=== PATIENT | male | born 1955 | race Caucasian/White ===

== ENCOUNTER 2017-07-25 17:39 | Inpatient (IN) | payer MEDICAID ==
[~2017-07-25] VITALS: Ht 165.1 cm; Wt 84.8 kg
[2017-07-25 18:25] VITALS: BP 124/83
--- NOTE | 2017-07-25 22:48 | NUR ---
PT TAKEN TO BED 10
--- NOTE | 2017-07-25 22:50 | NUR ---
61Y M BIB FAMILY C/O RIGHT INGUINAL BURNING PAIN, RECURRING PROTRUSION---- PT ADDS HERNIA IS REDUCIBLE BUT PROTRUDES WITH THE SLIGHTEST MOVEMENTS HX---INGUINAL HERNIA, RX---NONE
[2017-07-25 23:58] LABS: HEMATOCRIT 39.2 % (36-52); HEMOGLOBIN 13.2 g/dL (12.0-18.0); MEAN CORPUSCULAR HEMOGLOBIN 30 pg (27-31); MEAN CORPUSCULAR HGB CONC 34 g/dL (33-37); MEAN CORPUSCULAR VOLUME 89 fL (80-94); PLATELET COUNT (AUTO) 207 K/uL (140-450); RED BLOOD CELL COUNT(AUTO) 4.43 MIL/uL (4.20-6.10); RED CELL DISTRIBUTION WIDTH 12.5 % (11.6-13.7); WHITE BLOOD COUNT (AUTO) 6.4 K/uL (4.8-10.8)
[2017-07-26 00:08] LABS: ANION GAP 15.2 (8-16); CARBON DIOXIDE 24.4 mmol/L (21-32); CREATININE 0.8 mg/dL (0.7-1.3); POTASSIUM 3.6 mmol/L (3.5-5.1)
[2017-07-26 00:10] LABS: EOSINOPHILS % (MANUAL) 1 % (0-4); LYMPHOCYTES % (MANUAL) 56 % (20-46); MONOCYTES % (MANUAL) 2 % (5-12)
[2017-07-26 00:14] LABS: ALBUMIN 3.6 g/dL (3.4-5.0); TOTAL BILIRUBIN 0.3 mg/dL (0.0-1.0)
[2017-07-26 00:18] LABS: PROTHROMBIN TIME 10.2 secs (10.8-13.4)
[2017-07-26 00:22] LABS: APPEARANCE,URINE CLEAR (CLEAR); BILIRUBIN,URINE NEGATIVE (NEGATIVE); BLOOD, URINE NEGATIVE (NEGATIVE); COLOR,URINE YELLOW (YELLOW); LEUKOCYTE ESTERASE ,URINE NEGATIVE (NEGATIVE); NITRITE, URINE NEGATIVE (NEGATIVE); PH,URINE 5.5 (5.0-9.0); UGLUCOSE NEGATIVE (NEGATIVE)
[2017-07-26] MEDS: NACL 0.9% 1,000 ML IV SCH ×3 (01:06→21:21)
[2017-07-26] MEDS ORDERED: ACETAMINOPHEN 325 MG TAB PO PRN (01:10)
[2017-07-26] MEDS ORDERED: HYDROcodone/APAP 7.5/325 MG 1 TAB PO PRN (01:10)
[2017-07-26] MEDS ORDERED: DOCUSATE SODIUM 100 MG GELCAP PO PRN (01:10)
[2017-07-26] MEDS ORDERED: ZOLPIDEM 5 MG TAB PO PRN (01:10)
[2017-07-26] MEDS ORDERED: LORazepam 0.5 MG TAB PO PRN (01:10)
[2017-07-26] MEDS ORDERED: MORPHINE SULFATE 2 MG/ML SYR IVP PRN (01:10)
[2017-07-26] MEDS ORDERED: ONDANSETRON 4 MG/2 ML VIAL IM/IVP PRN (01:10)
[2017-07-26 01:30] VITALS: BP 127/82
--- NOTE | 2017-07-26 01:30 | NUR ---
RECEIVED PT FROM ER VIA ZAIN. AAOX4. IV TO RIGHT AC #18 G, SALINE LOCK. NO C/O PAIN AT THIS TIME. ORIENTED PT TO ROOM. V/S TAKEN. CALL LIGHT WITHIN REACH. WILL CONTINUE TO MONITOR.
--- NOTE | 2017-07-26 01:32 | NUR ---
Patient will be admitted to care of DR NICHOLSON. Admited to TELE 125. Will go to room 125. Belongings list completed. Report to ANTHONY.
[2017-07-26 01:35] LABS: BARBITURATE, URINE NEG. ng/ml (NEG <=200); BENZODIAZEPINE, URINE NEG. ng/mL (NEG <=200); CANNABINOID, URINE NEG. ng/mL (NEG <=50); COCAINE, URINE NEG. ng/mL (NEG <=300); OPIATE, URINE NEG. ng/mL (NEG <=2000); PHENCYCLIDINE SCREEN,URINE NEG. ng/mL (NEG <=25)
[2017-07-26 01:46] LABS: CHOL/HDL RATIO 6.6 (1-4.5); FREE T4 (FREE THYROXINE) 1.19 ng/dL (0.76-1.46); MAGNESIUM 1.7 mg/dL (1.8-2.4); PHOSPHORUS 3.5 mg/dL (2.5-4.9); THYROID STIMULATING HORMONE 4.78 uIU/mL (0.34-3.74)
--- NOTE | 2017-07-26 03:45 | NUR ---
PT RESTING IN BED WITH EYES CLOSED. RESPIRATIONS REGULAR, EVEN AND UNLABORED. AROUSES EASILY. NO /S OF PAIN. CALL LIGHT WITHIN REACH.
[2017-07-26 04:00] VITALS: BP 124/78
--- NOTE | 2017-07-26 05:50 | NUR ---
PT SLEEPING. NO S/S OF DISTRESS NOTED. CALL LIGHT WITHIN REACH.
--- NOTE | 2017-07-26 07:05 | NUR ---
ENDORSED PT TO DAY SHIFT NURSE. PT IN STABLE CONDITION.
--- NOTE | 2017-07-26 07:20 | NUR ---
REPORT RECEIVED FROM DIGITAL MARKETING APPRENTICE NURSE, PT SLEEPING QUIETLY IN NAD, AROUSED EASILY, RESP EVEN UNLABORED ON ROOM AIR, SKIN WARM DRY COLOR WNL, DENIES PAIN OR DISCOMFORT, PLAN OF CARE REVIEWED, NO IMMEDIATE NEEDS IDENTIFIED, CALL SOLO WITHIN REACH, SIDE RAILS UP, BED LOCKED IN LOW POSITION WILL CONTINUE TO MONITOR.
[2017-07-26 08:00] VITALS: BP 131/87
--- NOTE | 2017-07-26 08:20 | NUR ---
DR GAGE AND TEAM AT BEDSIDE FOR EVAL.
--- NOTE | 2017-07-26 08:33 | NUR ---
SURGERY CONSULT AT BEDSIDE.
--- NOTE | 2017-07-26 08:34 | NUR ---
TELE MONITOR REMOVED, PT NOW MED/SURG STATUS.
[2017-07-26 08:44] LABS: BASOPHILS # (AUTO) 0.1 K/uL (0.00-0.22); BASOPHILS % (AUTO) 2.3 % (0.0-2.0); EOSINOPHILS # (AUTO) 0.1 K/uL (0-0.4); EOSINOPHILS % (AUTO) 2.5 % (0.0-4.0); HEMATOCRIT 39.4 % (36-52); HEMOGLOBIN 13.3 g/dL (12.0-18.0); LYMPHOCYTES # (AUTO) 2.2 K/uL (2.0-11.5); LYMPHOCYTES % (AUTO) 41.9 % (20.5-51.1); MEAN CORPUSCULAR HEMOGLOBIN 30 pg (27-31); MEAN CORPUSCULAR HGB CONC 34 g/dL (33-37); MEAN CORPUSCULAR VOLUME 89 fL (80-94); MONOCYTES # (AUTO) 0.3 K/uL (0.8-1.0); MONOCYTES % (AUTO) 6.5 % (1.7-9.3); NEUTROPHILS # (AUTO) 2.7 K/uL (1.8-7.7); NEUTROPHILS % (AUTO) 46.8 % (42.2-75.2); PLATELET COUNT (AUTO) 194 K/uL (140-450); RED BLOOD CELL COUNT(AUTO) 4.44 MIL/uL (4.20-6.10); RED CELL DISTRIBUTION WIDTH 12.4 % (11.6-13.7); WHITE BLOOD COUNT (AUTO) 5.4 K/uL (4.8-10.8)
[2017-07-26 08:57] LABS: ANION GAP 14.3 (8-16); CARBON DIOXIDE 25.4 mmol/L (21-32); CREATININE 0.7 mg/dL (0.7-1.3); POTASSIUM 3.7 mmol/L (3.5-5.1)
[2017-07-26 09:04] LABS: MAGNESIUM 1.8 mg/dL (1.8-2.4); PHOSPHORUS 3.5 mg/dL (2.5-4.9)
--- NOTE | 2017-07-26 09:50 | NUR ---
CT ABD AND PELVIS WITHOUT CONTRAST PER DR BOYD.
--- NOTE | 2017-07-26 10:43 | NUR ---
PATIENT HAS BEEN SCREENED AND CATEGORIZED MODERATE NUTRITION RISK. PATIENT WILL BE SEEN WITHIN 3-5 DAYS OF ADMISSION. 07/28/17 - 07/30/[address]
--- NOTE | 2017-07-26 12:16 | NUR ---
PT VERBALIZED THAT SURGERY PROCEDURE WAS EXPLAINED BY DR BOYD VIA TELEPHONE PROGRAM COUNSELOR, PT STATES HE HAS NO QUESTIONS, CONSENT SIGNED BY PT.
--- NOTE | 2017-07-26 14:02 | NUR ---
PER OR STAFF, SURGERY POSTPONED, DR BOYD PAGED TO CONFIRM SCHEDULE, DR LARIOS MADE AWARE, PT UPDATED WITH PLAN.
[2017-07-26 15:54] VITALS: BP 132/72
--- NOTE | 2017-07-26 15:55 | NUR ---
VITALS STABLE, PT STATES PAIN IS VERY LITTLE, DECLINED OFFER FOR PAIN MED, AWAITING SURGERY WITH DR BOYD. CALL SOLO WITHIN REACH, SIDE RAILS UP, BED LOCKED IN LOW POSITION, DENIES ANY OTHER IMMEDIATE NEEDS, AT BEDSIDE, WILL CONTINUE TO MONTIOR.
--- NOTE | 2017-07-26 16:14 | NUR ---
REPORT GIVEN TO JANEEN ADAME, PT RELINQUISHED AT THIS TIME.
--- NOTE | 2017-07-26 16:15 | NUR ---
RECEIVED REPORT FROM WENDI QUINONEZ. PATIENT LYING IN BED COMFORTABLY. FAMILY MEMBER AT BEDSIDE. NO DISTRESS NOTED. DENIES ANY PAIN. SAFETY MEASURES IN PLACE, CALL LIGHT WITHIN REACH. WILL CONTINUE TO MONITOR.
--- NOTE | 2017-07-26 17:15 | NUR ---
PATIENT LYING DOWN IN BED SLEEPING, AROUSABLE BY VOICE. AT BEDSIDE. NO DISTRESS NOTED. DENIES ANY PAIN. SAFETY MEASURES IN PLACE, CALL LIGHT WITHIN REACH. WILL CONTINUE TO MONITOR.
--- NOTE | 2017-07-26 18:02 | NUR ---
PATIENT LYING DOWN IN BED SLEEPING, AROUSABLE BY VOICE. NO DISTRESS NOTED. DENIES ANY PAIN. CONDITION UNCHANGED. AWAITING FOR DR. BOYD FOR RIGHT INGUINAL HERNIA REPAIR SURGERY. WILL CONTINUE TO MONITOR.
--- NOTE | 2017-07-26 19:25 | NUR ---
GAVE REPORT TO STRETCH PRESS OPERATOR NURSE FOR CONTINUITY OF CARE. PATIENT IN STABLE CONDITION.
--- NOTE | 2017-07-26 19:26 | NUR ---
PATIENT REPORT RECEIVED FROM MORNING NURSE AT BEDSIDE. PATIENT IS AWAKE, ALERT AND ORIENTED. NO SIGNS AND SYMPTOMS OF DISTRESS NOTED. IV SITE NOTED ON LEFT WRIST, ASYMPTOMATIC, INTACT AND PATENT. BED IN LOWEST POSITION, SIDE RAILS UP AND CALL LIGHT WITHIN REACH. WILL CONTINUE TO MONITOR. Addendum: 07/27/17 at 0230 by Sanjuanita Sebastian RN IV SITE IS RIGHT AC, NOT LEFT WRIST
[2017-07-27] VITALS: BP 144/76
--- NOTE | 2017-07-27 02:40 | NUR ---
TOOK OVER FROM MANUEL. PT IS ASLEEP, NO SIGNS OF DISTRESS.
[2017-07-27 04:00] VITALS: BP 130/85
--- NOTE | 2017-07-27 04:00 | NUR ---
AWAKEN FOR V/S, NO COMPLAINTS. REENFORCED NPO STATUS FOR SURGERY IN AM.
[2017-07-27] MEDS: NACL 0.9% 1,000 ML IV SCH ×3 (07:06→17:06)
[2017-07-27 08:00] VITALS: BP 118/75
[2017-07-27] MEDS ORDERED: BUPIVACAINE-MPF 0.25% 30 ML VIAL INJ ONE (10:09)
[2017-07-27] MEDS ORDERED: ceFAZolin 1,000 MG VIAL ONE ×2 (10:09→10:41)
[2017-07-27] MEDS ORDERED: ONDANSETRON 4 MG/2 ML VIAL IVP ONE (10:19)
[2017-07-27] MEDS ORDERED: PROPOFOL 200 MG/20 ML VIAL IV ONE (10:19)
[2017-07-27] MEDS ORDERED: DEXAMETHASONE 4 MG/ML VIAL IVP ONE (10:19)
[2017-07-27] MEDS ORDERED: SEVOFLURANE 250 ML BTL INH ONE (10:19)
[2017-07-27] MEDS ORDERED: KETOROLAC 30 MG/ML VIAL IVP ONE (10:19)
[2017-07-27] MEDS ORDERED: HYDROmorphone PFS 2 MG/ML SYR ONE (10:20)
[2017-07-27] MEDS ORDERED: fentaNYL 0.05 MG/ML VIAL ONE (10:20)
[2017-07-27 10:54] LABS: ANION GAP 15.5 (8-16); CREATININE 0.7 mg/dL (0.7-1.3); MAGNESIUM 1.9 mg/dL (1.8-2.4); PHOSPHORUS 3.6 mg/dL (2.5-4.9); POTASSIUM 3.5 mmol/L (3.5-5.1)
[2017-07-27] MEDS ORDERED: HYDROmorphone PFS 2 MG/ML SYR IVP PRN ×2 (11:25→12:35)
[2017-07-27] MEDS ORDERED: ONDANSETRON 4 MG/2 ML VIAL IVP PRN (11:25)
[2017-07-27 12:23] LABS: T4 (THYROXINE) 7.4 ug/dL (4.5-12.0)
[2017-07-27] MEDS ORDERED: MORPHINE SULFATE 4 MG/ML SYR IV PRN (12:35)
[2017-07-27] MEDS ORDERED: ACETAMINOPHEN 325 MG TAB PO PRN (12:35)
[2017-07-27] MEDS ORDERED: MORPHINE SULFATE 2 MG/ML SYR IVP PRN (12:35)
[2017-07-27] MEDS ORDERED: HYDROcodone/APAP 5/325 MG 1 TAB TAB PO PRN (12:35)
[2017-07-27] MEDS ORDERED: ONDANSETRON 4 MG/2 ML VIAL IV PRN (12:35)
--- NOTE | 2017-07-27 12:57 | NUR ---
PT BACK FROM OR. PT IS AWAKE AND ORIENTED. 5LB SANDBAG ON RIGHT INGUINAL INCISION. VS: BP 121/79, HR 59, RR 18, O2% 97% RA, TEMP 97.2 F. NO SIGNS OF DISTRESS. PT'S AT BEDSIDE. REPORT GIVEN BY OR NURSE. RESUMED NS IV INFUSION @100ML/HR. WILL CONTINUE TO MONITOR.
[2017-07-27 15:58] LABS: BASOPHILS # (AUTO) 0.1 K/uL (0.00-0.22); BASOPHILS % (AUTO) 2.3 % (0.0-2.0); EOSINOPHILS # (AUTO) 0.1 K/uL (0-0.4); EOSINOPHILS % (AUTO) 1.9 % (0.0-4.0); HEMATOCRIT 41.3 % (36-52); HEMOGLOBIN 13.9 g/dL (12.0-18.0); LYMPHOCYTES # (AUTO) 2.5 K/uL (2.0-11.5); LYMPHOCYTES % (AUTO) 40.1 % (20.5-51.1); MEAN CORPUSCULAR HEMOGLOBIN 30 pg (27-31); MEAN CORPUSCULAR HGB CONC 34 g/dL (33-37); MEAN CORPUSCULAR VOLUME 89 fL (80-94); MONOCYTES # (AUTO) 0.3 K/uL (0.8-1.0); MONOCYTES % (AUTO) 5.1 % (1.7-9.3); NEUTROPHILS # (AUTO) 3.3 K/uL (1.8-7.7); NEUTROPHILS % (AUTO) 50.6 % (42.2-75.2); PLATELET COUNT (AUTO) 212 K/uL (140-450); RED BLOOD CELL COUNT(AUTO) 4.65 MIL/uL (4.20-6.10); RED CELL DISTRIBUTION WIDTH 12.1 % (11.6-13.7); WHITE BLOOD COUNT (AUTO) 6.3 K/uL (4.8-10.8)
--- NOTE | 2017-07-27 19:15 | NUR ---
ENDORSED PT TO ADDRESSOGRAPH OPERATOR NURSE AT BEDSIDE FOR CONTINUITY OF CARE. PT IN STABLE CONDITION,.
--- NOTE | 2017-07-27 19:16 | NUR ---
PATIENT REPORT RECEIVED FROM MORNING NURSE AT BEDSIDE. PATIENT IS AWAKE, ALERT AND ORIENTED. NO SIGNS AND SYMPTOMS OF DISTRESS NOTED. PATIENT COMPLAINS OF 4/10 ABDOMINAL PAIN, PATIENT REFUSED MEDICATION. SAID THAT IT WAS TOLERABLE. PLAN OF CARE DISCUSSED WITH PATIENT. PATIENT VERBALIZED UNDERSTANDING. BED IN LOWEST POSITION, SIDE RAILS UP AND CALL LIGHT WITHIN REACH. WILL CONTINUE TO MONITOR.
[2017-07-27] MEDS ORDERED: guaiFENesin DM 200/20 MG-10 ML 10 ML UDC PO PRN (22:20)
[2017-07-27] MEDS ORDERED: guaiFENesin DM 200/20 MG-10 ML 10 ML UDC ONE (22:52)
[2017-07-28] VITALS: BP 114/70
--- NOTE | 2017-07-28 02:00 | NUR ---
PATIENT STATED HE WOULD LIKE TO TRY AND HAVE A BOWEL MOVEMENT. ASSISTED PATIENT TO THE RESTROOM. PATIENT WAS NOT ABLE TO HAVE BOWEL MOVEMENT, HE JUST VOIDED. ASSISTED HIM BACK TO BED. NO SOB NOTED. WILL CONTINUE TO MONITOR.
[2017-07-28] MEDS ORDERED: HYDROmorphone PFS 2 MG/ML SYR ONE (02:50)
[2017-07-28 06:51] LABS: HEMATOCRIT 39.4 % (36-52); HEMOGLOBIN 13.4 g/dL (12.0-18.0); MEAN CORPUSCULAR HEMOGLOBIN 30 pg (27-31); MEAN CORPUSCULAR HGB CONC 34 g/dL (33-37); MEAN CORPUSCULAR VOLUME 89 fL (80-94); PLATELET COUNT (AUTO) 216 K/uL (140-450); RED BLOOD CELL COUNT(AUTO) 4.43 MIL/uL (4.20-6.10); RED CELL DISTRIBUTION WIDTH 12.1 % (11.6-13.7)
--- NOTE | 2017-07-28 07:10 | NUR ---
RECEIVED PATIENT REPORT AT BEDSIDE. PATIENT AWAKE, ALERT AND ORIENTED. RIAN NOTED TO THE RIGHT INGUINAL AREA. RIAN CLEAN, DRY AND INTACT. NO C/O PAIN AT THIS TIME. BED LOWERED WITH CALL LIGHT WITHIN REACH. WILL CONTINUE TO MONITOR
--- NOTE | 2017-07-28 07:25 | NUR ---
PATIENT REPORT GIVEN TO MORNING NURSE AT BEDSIDE. PATIENT IS IN STABLE CONDITION.
[2017-07-28 07:29] LABS: ANION GAP 12.2 (8-16); CARBON DIOXIDE 24.7 mmol/L (21-32); CREATININE 0.8 mg/dL (0.7-1.3); POTASSIUM 3.9 mmol/L (3.5-5.1)
[2017-07-28 07:34] LABS: LYMPHOCYTES % (MANUAL) 13 % (20-46); MONOCYTES % (MANUAL) 7 % (5-12)
[2017-07-28 07:38] LABS: MAGNESIUM 1.9 mg/dL (1.8-2.4); PHOSPHORUS 3.5 mg/dL (2.5-4.9)
[2017-07-28] MEDS: NACL 0.9% 1,000 ML IV SCH (07:47)
[2017-07-28 08:00] VITALS: BP 112/67
[2017-07-28] MEDS ORDERED: ACET-8386 PO (10:34)
[2017-07-28] MEDS ORDERED: DOCU-299 PO (10:34)
[2017-07-28] MEDS ORDERED: AMOX-1000 PO (11:03)
[2017-07-28] MEDS ORDERED: LACT10CA1 PO (11:03)
[2017-07-28] MEDS ORDERED: GLU500 PO (11:28)
[2017-07-28] MEDS ORDERED: INFLUENZA VIRUS VACCINE QUAD 0.5 ML SYR IMVAC SCH (12:35)
--- NOTE | 2017-07-28 13:39 | NUR ---
PATIENT DISCHARGED TO HOME. DISCHARGE INSTRUCTIONS AND DISCHARGE PRESCRIPTIONS GIVEN. PATIENT VERBALIZED UNDERSTANDING. IV LINE DISCONTINUED. PATIENT LEFT WITH ALL HIS BELONGINGS AND DISCHARGE PAPERS. PATIENT LEFT IN STABLE CONDITION
== END 2017-07-28 13:43 | disposition home or self-care (01) | DRG 228 ==
LOC: MED 17:39 → MMU 07-26 01:10
PROVIDERS: ADMIT Family Medicine Sports Medicine; ATTEND Family Medicine Sports Medicine
PROC: 0YU50JZ Supplement Right Inguinal Region with Synthetic Substitute, Open Approach (ICD-10-PCS; principal; 2017-07-26)
PROC: 3E0234Z Introduction of Serum, Toxoid and Vaccine into Muscle, Percutaneous Approach (ICD-10-PCS; 2017-07-28)
DX: K40.30 Unilateral inguinal hernia, with obstruction, without gangrene, not specified as recurrent (principal); N17.0 Acute kidney failure with tubular necrosis; D68.59 Other primary thrombophilia; E02 Subclinical iodine-deficiency hypothyroidism; E78.5 Hyperlipidemia, unspecified; E11.65 Type 2 diabetes mellitus with hyperglycemia; K57.90 Diverticulosis of intestine, part unspecified, without perforation or abscess without bleeding; Z23 Encounter for immunization
CPT/HCPCS: 36415; 71045; 80048; 80053; 80305; 81003; 82150; 83036; 83690; 83735; 83880; 84100; 84436; 84439; 84443; 84479; 84484; 85025; 85610; 85730; 87081; 90658; 93005; 99285; J0690; J0696; J1100; J1170; J1885; J2270; J2405; J2704; J3010; J3490; J7030; J7060; Q0092